=== PATIENT | female | born 1955 | race Caucasian/White ===

== ENCOUNTER 2019-03-23 10:19 | Day surgery (SDC) | payer MEDICARE, OTHER ==
[2019-03-23] MEDS ORDERED: LIDOCAINE 2% MDV (20MG/ML) 20ML VIAL IV ONE (10:20)
[2019-03-23] MEDS ORDERED: PROPOFOL 10 MG/ML VIAL IV ONE (10:20)
--- NOTE | 2019-03-25 08:30 | Operative Note ---
OPERATION: COLONOSCOPY to the cecum with cold snare polypectomy x5. INDICATION: History of adenomatous polyps in the past. The patient returns at this time for surveillance. Her last examination was about 5 years ago. ANESTHESIA: Intravenous sedation was administered by the department of anesthesiology and included Diprivan titrated to effect. PROCEDURE: Following informed consent from this alert individual including a discussion of the risks and benefits of the procedure and an opportunity for the patient to ask questions, the patient was in the left lateral decubitus position. A digital rectal examination was performed. No abnormalities were noted. Following this, the Olympus [id number] video colonoscope was inserted into the rectum without resistance. The rectal mucosa had a normal appearance with normal folds and distensibility. The colonoscope was advanced up through the colon to the level of the cecum without much difficulty. Throughout the bowel the mucosa appeared normal, the folds were normal, and the bowel was fairly well distensible. The cecum was defined by noting the appendiceal orifice and ileocecal valve. The colon preparation was adequate. There was some retained liquid noted, most of which was suctioned through the endoscope into a collection trap. At the level adjacent to the appendiceal orifice, there was a sessile 4 mm polyp noted which was removed with cold snare polypectomy and biopsy. The colonoscope was then further withdrawn. In the ascending colon, there were 2 polyps measuring 5 mm in size each removed with cold snare polypectomy. There were 2 additional polyps noted in the descending colon also measuring approximately 5 mm in size likewise removed with cold snare polypectomy. Polyps were suctioned through the colonoscope into a collection trap. The instrument was then withdrawn further through the bowel into the rectum where retroflexion accomplished following air insufflation failed to demonstrate changes. The endoscope was then removed. The patient tolerated the procedure well and was returned to the recovery area in stable condition. IMPRESSION: A total of 5 polyps removed with 1 at the level of the appendiceal orifice, 2 in the ascending colon, 2 in the descending colon, all removed with cold snare polypectomy. RECOMMENDATIONS: Further recommendations will be forthcoming pending results of pathology. The patient will also be following up with Osito Soto DO. As always, thank you for allowing me to participate in the care of your patient. LORENA
== END 2019-03-23 12:35 | disposition home or self-care (01) ==
LOC: HOP 10:19
PROVIDERS: ATTEND Internal Medicine Gastroenterology
DX: Z12.11 Encounter for screening for malignant neoplasm of colon (principal); Z86.010 Personal history of colon polyps; D12.2 Benign neoplasm of ascending colon; D12.0 Benign neoplasm of cecum; K63.5 Polyp of colon; I10 Essential (primary) hypertension